=== PATIENT | female | born 1965 | race American Indian/Alaskan Native ===

== ENCOUNTER 2019-01-05 14:04 | Outpatient (CLI) | payer BC ==
--- NOTE | 2019-01-08 09:44 | Magnetic Resonance Report ---
BILATERAL BREAST MRI WITHOUT AND WITH CONTRAST: 01/05/19 14:04:00 CLINICAL: Family history of breast cancer and history of a left benign needle biopsy. COMPARISON:10/05/18 bilateral screening mammogram and 12/28/18 left diagnostic mammogram. TECHNIQUE: Axial 1.0-mm T1 without, axial high resolution 2.0-mm T2 and axial 1.0-mm dynamic Vibrant high-resolution postcontrast T1 fat saturation sequences on a 1.5 Jesenia magnet. The examination was performed with an 8 channel dedicated [place] breast coil. Post processing with CAD and subtraction was performed on an [employer] workstation. 19.0 cc of Multihance was injected without incident for the contrast portion of the exam. Consent was obtained prior to the administration of the contrast. FINDINGS: Right: Moderate background parenchymal enhancement. No mass or suspicious enhancement. No suspicious lymph nodes. Left: Moderate background parenchymal enhancement. No mass or suspicious enhancement. A left subareolar biopsy clip. No suspicious lymph nodes. IMPRESSION: Normal study. Recommend routine mammographic screening. BI-RADS 1 - - Negative
== END 2019-01-05 14:05 | disposition home or self-care (01) ==
LOC: SPVIMAG 14:04
PROVIDERS: ATTEND Surgery
DX: N60.32 Fibrosclerosis of left breast (principal); N60.31 Fibrosclerosis of right breast; Z80.3 Family history of malignant neoplasm of breast
CPT/HCPCS: A9577; C8908; 77049

== ENCOUNTER 2021-03-26 14:02 | Outpatient (CLI) | payer BC ==
--- NOTE | 2021-03-26 15:42 | Mammography Report ---
DIGITAL SCREENING MAMMOGRAM WITH TOMOSYNTHESIS WITH CAD, 03/26/2021 CLINICAL INFORMATION / INDICATION: Screening TECHNIQUE: Digital bilateral 2D and 3D mammography with tomosynthesis was obtained in the craniocaud al and mediolateral oblique projections. Computer-Aided Detection (CAD) analysis was used for interp retation of this study. COMPARISON: 12/06/2019 and priors FINDINGS: Breast Density: The breasts are heterogeneously dense, which may obscure small masses. No dominant mass, suspicious calcifications, or architectural distortion in either breast. IMPRESSION: No mammographic evidence of malignancy. Follow up recommendation: Routine yearly BI-RADS Category 1: Negative. A "normal" or negative report should not discourage follow up or biopsy of a clinically significant f inding. A written summary of these findings will be mailed to the patient. The patient will be entered into a mammography reporting system which will generate a reminder letter for the patient's next appointmen t at the appropriate interval. The [employer] recommends yearly mammograms starting at age 40 and continuing as l lalit as a woman is in good health. Breast MRI is recommended for women with an approximate 20-25% or greater lifetime risk of breast cancer, including women with a strong family history of breast or ova jalen cancer or who have been treated for Hodgkin's disease. Signer Name: Cody Hugo MD Signed: 03/26/2021 3:37 PM Workstation Name: [id number]
== END 2021-03-26 14:03 | disposition home or self-care (01) ==
LOC: SPVWC 14:02
PROVIDERS: ATTEND Surgery
DX: Z12.31 Encounter for screening mammogram for malignant neoplasm of breast (principal)
CPT/HCPCS: 77063; 77067

== ENCOUNTER 2022-04-21 15:16 | Outpatient (CLI) | payer BC | END 2022-04-21 15:17 | disposition home or self-care (01) | LOC: SPVWC 15:16 | PROVIDERS: ATTEND Surgery | DX: Z12.31 Encounter for screening mammogram for malignant neoplasm of breast (principal) | CPT/HCPCS: 77067 ==